=== PATIENT | male | born 1960 | race Caucasian/White ===

== ENCOUNTER 2020-08-16 08:21 | Day surgery (SDC) | payer OTHER, SELFPAY ==
[2020-08-14 12:25] LABS: BASOPHIL % 1.3 % (0.2-1.5); PLATELET COUNT 240 x10^3mcL (152-348); RED CELL DISTRIBUTION WIDTH 12.6 % (12.1-16.2)
[2020-08-14 12:42] LABS: ALBUMIN 4.1 g/dL (3.4-5.0); ALKALINE PHOSPHATASE 98 U/L (46-116); BILIRUBIN TOTAL 0.4 mg/dL (0.20-1.00); CARBON DIOXIDE 27.8 mmol/L (21-32); CHLORIDE SERUM 98 mmol/L (98-107); CREATININE SERUM 0.9 mg/dL (0.7-1.3); GFR1 > 60 mL/min; POTASSIUM SERUM 4.2 mmol/L (3.5-5.1); SODIUM SERUM 132 mmol/L (136-145); TOTAL PROTEIN, SERUM 7.6 g/dL (6.4-8.2)
[2020-08-14 13:05] LABS: rbc morphology (normal/abnorm) NORMAL (NORMAL)
[2020-08-14 13:35] LABS: ALT/SGPT 27 U/L (16-63); AST/SGOT 15 U/L (15-37); GLUCOSE SERUM 115 mg/dL (74-106)
--- NOTE | 2020-08-15 16:34 | NUR ---
COPY OF LAB RESULTS WERE FAXED TO DR. SAINZ'S OFFICE FOR REVIEW. ALSO, ANOTHER COPY OF LAB RESULTS WERE SENT TO OR FOR ANESTHESIOLOGIST TO REVIEW.
[~2020-08-16] VITALS: Ht 177.8 cm; Wt 81.6 kg
[2020-08-16 08:49] VITALS: BP 157/84
[2020-08-16 15:09] VITALS: BP 154/84
== END 2020-08-16 14:50 | disposition home or self-care (01) ==
LOC: DS 08:21 → OR 10:30 → DS 14:50
PROVIDERS: ATTEND Surgery
DX: K42.0 Umbilical hernia with obstruction, without gangrene (principal); I10 Essential (primary) hypertension; E03.9 Hypothyroidism, unspecified
CPT/HCPCS: C1781; J0690; J1170; J2405; J3010; J3490